=== PATIENT | female | born 1985 | race Hispanic/Latino ===

== ENCOUNTER 2019-10-18 22:06 | Emergency (ER) | payer SELFPAY ==
[2019-10-19] MEDS ORDERED: ONDANSETRON ODT 4 MG TAB ONE (00:17)
== END 2019-10-19 00:26 | disposition home or self-care (01) ==
LOC: EDH 22:06
DX: F41.1 Generalized anxiety disorder (principal); F43.9 Reaction to severe stress, unspecified; R11.0 Nausea